=== PATIENT | male | born 1960 | race Caucasian/White ===

== ENCOUNTER 2017-06-08 12:35 | Emergency (ER) | payer BC ==
[~2017-06-08] VITALS: Ht 182.9 cm; Wt 93.0 kg
[2017-06-08 14:05] VITALS: BP 136/92
== END 2017-06-08 14:06 | disposition home or self-care (01) ==
LOC: M.ERS 12:35
DX: S90.511D Abrasion, right ankle, subsequent encounter (principal); X58.XXXD Exposure to other specified factors, subsequent encounter

== ENCOUNTER 2018-06-08 11:30 | Emergency (ER) | payer BC ==
[~2018-06-08] VITALS: Ht 182.9 cm; Wt 95.3 kg
[2018-06-08 12:58] VITALS: BP 157/106
== END 2018-06-08 12:59 | disposition home or self-care (01) ==
LOC: M.ERS 11:30
DX: S01.01XA Laceration without foreign body of scalp, initial encounter (principal); S06.0X0A Concussion without loss of consciousness, initial encounter; W22.03XA Walked into furniture, initial encounter; Y93.89 Activity, other specified; Y92.89 Other specified places as the place of occurrence of the external cause; Y99.8 Other external cause status

== ENCOUNTER → 2018-09-17 | Outpatient (CLI) | payer BC ==
[2018-09-17] VITALS (7 sets, daily range): BP systolic 112–134; BP diastolic 77–94
[~2018-09-17] MED LIST: KAPSPARGO SPRIN50 MG PO; XARELTO20 MG PO
[2018-09-17 09:45] LABS: HEMATOCRIT 43.4 % (42.0-52.0); HEMOGLOBIN 14.5 gm/dL (14.0-18.0); MCHC 33.4 g/dL (28.0-37.0); MCV 86.8 fL (80.0-100.0); MPV 8.7 fl. (7.2-11.1); RDW-CV 14.4 % (10.5-14.5); WBC 5.6 thou/uL (4.0-11.0)
[2018-09-17 09:59] LABS: ALBUMIN 3.7 g/dL (3.4-5.0); CREATININE 1.2 mg/dL (0.6-1.3); POTASSIUM 4.6 mmol/L (3.5-5.1); TOTAL BILIRUBIN 0.8 mg/dL (<0.1-1.0); TOTAL PROTEIN 7.4 g/dL (6.4-8.2)
--- NOTE | 2018-09-17 11:20 | TEE ---
[facility] [address] [place] [address] TRANSESOPHAGEAL ECHOCARDIOGRAM Name: SHERWIN POSADA Room: [facility]#: [id number] Admission: 09/17/18 Attend Phys: Grover Ibrahim, Discharge: Date of : 64 Date of Service: 09/17/18 1119 Report #: [id number] THIS REPORT FOR: //name// APPROVED REPORT Study performed: 09/17/2018 09:59:14 EXAM: Transesophageal Echocardiogram Patient Location: Out-Patient Status: routine BSA: 2.20 HR: 156 bpm BP: 137/94 mmHg Rhythm: Atrial Fibrillation Other Information Study Quality: Good Indications Atrial Fibrillation Echo Enhancing Agent Indication: Rule out Shunt Agent(s) / Amount(s) Used: Agitated Saline 10 cc Procedure After obtaining informed consent, patient underwent transesophageal echo in the [employer]. Type of Sedation : Conscious Sedation Sedation was administered by Saniya Cohen RN. Sedation start time: 1000 Case end Time: 1011 Sedation was achieved intravenously with: Versed (6) Fentanyl (150) Transesophageal probe was inserted and advanced into esophagus without difficulty by Grover Ibrahim MD, FACC. Echo enhancement indication: R/O Septal defect. Echo enhancement agent administered: Agitated Saline The BERNA was performed without complications. Synchronized Cardioversion acheived with 300 Joules after 1 attempt(s). Rhythm following Synchronized Cardioversion: Normal Sinus Rhythm Throughout the procedure, the blood pressure, pulse oximetry, cardiac rhythm, and rate were monitored. The patient tolerated the procedure without adverse effects. Recovery from conscious sedation was uneventful and vital signs were [facility] [address] [place] [address] TRANSESOPHAGEAL ECHOCARDIOGRAM Name: SHERWIN POSADA Room: [facility]#: [id number] Admission: 09/17/18 Attend Phys: Grover Ibrahim, Discharge: Date of : 64 Date of Service: 09/17/18 1119 Report #: [id number] stable. Left Ventricle The left ventricle is normal size. There is global hypokinesis of the left ventricle. There is normal left ventricular wall thickness. Left ventricular systolic function is moderately decreased. LVEF is 30-35%. Right Ventricle The right ventricle is normal size. The right ventricular systolic function is normal. Atria No thrombus is visualized in the left atrium or appendage. Interatrial septum is intact without evidence of ASD or PFO. The right atrium size is normal. Aortic Valve The aortic valve is normal in structure. No aortic regurgitation is present. There is no aortic valvular stenosis. Mitral Valve The mitral valve is normal in structure. Mild mitral regurgitation. No evidence of mitral valve stenosis. Tricuspid Valve The tricuspid valve is normal in structure. Mild tricuspid regurgitation. Pulmonic Valve Pulmonic valve is not well visualized. There is no pulmonic valvular regurgitation. Great Vessels The aortic root is normal in size. Pericardium There is no pericardial effusion. <Conclusion> The left ventricle is normal size. There is normal left ventricular wall thickness. Left ventricular systolic function is moderately decreased. LVEF is 30-35%. No thrombus is visualized in the [place] [address] TRANSESOPHAGEAL ECHOCARDIOGRAM Name: ALBINOSHERWIN Ant Room: [facility]#: [id number] Admission: 09/17/18 Attend Phys: Grover Ibrahim, Discharge: Date of : 64 Date of Service: 09/17/18 1119 Report #: [id number] Interatrial septum is intact without evidence of ASD or PFO. Mild mitral regurgitation. Mild tricuspid regurgitation. <ELECTRONICALLY SIGNED> By: Grover Ibrahim MD, FACC 09/17/18 1119 18 18 Grover Ibrahim MD, FACC /INF
--- NOTE | 2018-09-17 13:35 | EKG ---
[place] [address] ELECTROCARDIOGRAM REPORT Name: SHERWIN POSADA Room: [facility]#: [id number] Admission: 09/17/18 Attend Phys: Grover Ibrahim MD Discharge: Date of : 64 Report #: [id number] THIS REPORT FOR: //name// [facility] Test Date: 2018-09-17 Test Time: 09:23:14 Pat Name: SHERWIN POSADA Department: Room: Gender: M [employer]: TPARKS : 1960 Requested By: Grover Ibrahim Order Number: [id number] Reading MD: Barber Melendez Measurements Intervals [place] Rate: 156 P: 0 IN: QRS: -33 QRSD: 146 T: -75 QT: 337 QTc: 543 Interpretive Statements atrial flutter Nonspecific intraventricular conduction delay Borderline repol abnormality, diffuse leads No previous ECG available for comparison Electronically Signed On 09-17-2018 13:35:29 CDT by Barber Melendez [email or web address] <ELECTRONICALLY SIGNED> By: Barber Melendez MD, [facility] 09/17/18 1335 0923 2 Barber Melendez MD, FACC /EPI
== END | disposition home or self-care (01) ==
LOC: M.CL 08:57
PROVIDERS: Internal Medicine Cardiovascular Disease
DX: I48.91 Unspecified atrial fibrillation (principal); Z98.890 Other specified postprocedural states; Z79.899 Other long term (current) drug therapy; Z79.01 Long term (current) use of anticoagulants

== ENCOUNTER → 2019-07-02 | Outpatient (CLI) | payer BC ==
[~2019-07-02] MED LIST changes: +CENTRUM SILVER1 EAC2 PO
== END ==
LOC: M.MRI 08:30
DX: M75.102 Unspecified rotator cuff tear or rupture of left shoulder, not specified as traumatic (principal); M19.012 Primary osteoarthritis, left shoulder

== ENCOUNTER → 2019-09-28 | Outpatient (CLI) | payer BC | LOC: M.ULTRA 13:49 | DX: M79.604 Pain in right leg (principal) ==

== ENCOUNTER → 2020-03-09 | Outpatient (CLI) | payer BC | LOC: M.MRI 07:04 | PROVIDERS: ATTEND Orthopaedic Surgery | DX: M75.101 Unspecified rotator cuff tear or rupture of right shoulder, not specified as traumatic (principal); M25.711 Osteophyte, right shoulder; M19.011 Primary osteoarthritis, right shoulder ==